=== PATIENT | female | born 1990 | race African-American/Black ===

== ENCOUNTER 2018-12-11 23:37 | Emergency (ER) | payer SELFPAY ==
[~2018-12-11] VITALS: Ht 157.5 cm; Wt 77.1 kg
[2018-12-11 23:52] VITALS: BP 130/88
--- NOTE | 2018-12-11 23:52 | NUR ---
ED Nurse Note: walk-in patient presents with a cough.
[2018-12-12] MEDS ORDERED: PROMETHAZINE-C118 M1 ORAL (00:01)
--- NOTE | 2018-12-12 00:01 | Emergency Room Report ---
History of Present Illness General Chief Complaint: Upper Respiratory Illness Source: Patient Present Illness [facility] This is a 28-year-old female with no past medical history. She presents with chief complaint of a cough and congestion for last 4 days. Cough is nonproductive nature. Worse with inspiration. Better with Phenergan and codeine. Denies any other complaint. She has sick contact with her kids. Allergies: Coded Allergies: IBUPROFEN (Verified Allergy, Unknown, 12/11/18) Uncoded Allergies: ROBITUSIN (Allergy, Unknown, 12/11/18) Patient History Past Medical History: see triage record, old chart reviewed Past Surgical History: none Pertinent Family History: none Social History: Denies: smoking Last Menstrual Period: 12/01/18 Now: No Immunizations: other Reviewed Nursing Documentation: PMH: Agreed; PSxH: Agreed Nursing Documentation-PMH Past Medical History: No Stated History Review of Systems Eye: Denies: eye pain, blurred vision ENT: Denies: ear pain, nose congestion, throat swelling Respiratory: Reports: cough; Denies: shortness of breath Cardiovascular: Denies: chest pain, palpitations Gastrointestinal: Denies: abdominal pain, diarrhea, nausea, vomiting Musculoskeletal: Denies: back pain, joint pain Skin: Denies: rash Neurological: Denies: headache, numbness Endocrine: Denies: increased thirst, increased urine Hematologic/Lymphatic: Denies: easy bruising All Other Systems: negative except mentioned in HPI Physical Exam Vital Signs Date Time Temp Pulse Resp B/P (MAP) Pulse Ox O2 Delivery O2 Flow Rate FiO2 12/11/18 23:43 98.6 90 18 130/88 (102) 100 Room Air Vitals normal Sp02 EP Interpretation: reviewed, normal General Appearance: well appearing, no apparent distress, alert Head: normocephalic, atraumatic Eyes: bilateral eye PERRL, bilateral eye EOMI ENT: hearing grossly normal, normal pharynx Neck: full range of motion, supple, no meningismus Respiratory: chest non-tender, lungs clear, normal breath sounds Cardiovascular #1: regular rate, rhythm, no murmur Gastrointestinal: normal bowel sounds, non tender, no mass, no organomegaly, no bruit, non-distended Musculoskeletal: back normal, gait/station normal, normal range of motion Psychiatric: mood/affect normal Medical Decision Making Diagnostic Impression: Primary Impression: Upper respiratory infection Qualified Codes: J06.9 - Acute upper respiratory infection, unspecified ER Course Presents with upper restaurant infection. No evidence of pneumonia, ACS, PE, dissection to name a few. Will discharge home. Last Vital Signs Date Time Temp Pulse Resp B/P (MAP) Pulse Ox O2 Delivery O2 Flow Rate FiO2 12/11/18 23:52 90 18 Room Air 12/11/18 23:52 98.6 130/88 100 Status: unchanged Disposition: HOME, SELF-CARE Condition: Stable Scripts Codeine/Promethazine Hcl* (PROMETHAZINE-CODEINE SYRUP*) 118 Ml Syrup 5 ML ORAL Q6H PRN for For Cough, #60 ML 0 Refills Prov: Jacinto Ortiz MD 12/12/18 Patient Instructions: Upper Respiratory Infection, Adult Additional Instructions: Follow-up with your doctor in 7 days. Return if worse. Jacinto Ortiz MD Dec 12, 2018 00:01
--- NOTE | 2018-12-12 00:04 | NUR ---
ED Nurse Note: Patient cleared for discharge verbalized understanding of discharge instructions. Patient departed with all belongings.
[2018-12-12 00:05] VITALS: BP 130/88
== END 2018-12-12 00:45 | disposition home or self-care (01) ==
LOC: EMR 12-12 00:42
DX: J06.9 Acute upper respiratory infection, unspecified (principal); Z88.6 Allergy status to analgesic agent
CPT/HCPCS: 99282